=== PATIENT | female | born 1975 ===

== ENCOUNTER 2018-11-24 00:50 | Emergency (ER) | payer BC, OTHER ==
[~2018-11-24 00:50] MED LIST: HYDR-385 PO; IBUP800T37 PO
--- NOTE | 2018-11-24 00:55 | ER Report ---
History and Physical Time Seen By MD: 00:54 HPI/ROS CHIEF COMPLAINT: burning in chest HISTORY OF PRESENT ILLNESS: Pt states that tonight her chest "just does not feel right. I can tell its off". Pt feels a dullache/burning in her chest. Pt unable to tell me if it is constant but it caused her not to be able to sleep. PT denies sob. No abd pain. Pt did take 4 baby aspirin. 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 Pt states that she was on cardiac medications and her heart improved to a normal EF by 2013 and was taken off all cardiac medication and was told she was cleared. Pt states that she feels tired but that is not too unusual after her menstraul period. PT denies any hx of reflux . Pt does statse she feels more "gasy". REVIEW OF SYSTEMS: Constitutional: No fever, no chills. Eyes: No discharge. ENT: No sore throat. Cardiovascular: + chest pain, no palpitations. Respiratory: No cough, no shortness of breath. Gastrointestinal: No abdominal pain, no vomiting. Genitourinary: No hematuria. Musculoskeletal: No back pain. Skin: No rashes. Neurological: No headache, + fatigue Allergies: Coded Allergies: No Known Drug Allergies (Unverified , 11/24/18) Home Meds Discontinued Scripts Ibuprofen (IBUPROFEN) 800 Mg Tab, 800 MG PO Q8H, #15 TAB 0 Refills Prov:JOSEPH ROBERTS MD 05/01/15 Hydrocodone Bit/Acetaminophen (HYDROCODON-ACETAMINOPHEN 5-325) 2 Each Tab, 0 EACH PO Q4H PRN for PAIN, #10 TAB 0 Refills Prov:JOSEPH ROBERTS MD 05/01/15 Past Medical/Surgical History pmhx: cardiomyopathy Pshx: tubal ligation Reviewed Nurses Notes: Yes Old Medical Records Reviewed: Yes Hx Smoking: No Hx Alcohol Use: No Constitutional Vital Sign - Last 24 Hours 11/24/18 11/24/18 00:57 01:24 Pulse 80 Resp 18 B/P (MAP) 119/82 Pulse Ox 99 O2 Delivery Room Air O2 Flow Rate 5.0 Physical Exam General Appearance: The patient is alert, has no immediate need for airway protection and no signs of toxicity. Eyes: Pupils equal and round no pallor or injection, EOMI ENT: no pharyngeal erythema or exudates, Mucous membranes are moist, TM are nl b/l Respiratory: There are no retractions, lungs are clear to auscultation. Cardiovascular: Regular rate and rhythm. pulses are equal and symmetrical Gastrointestinal: Abdomen is soft and non tender, no masses, bowel sounds normal, no guarding, no rigidity or rebound Neurological: Cranial nerves II-XII grossly intact, no sensory or motor loss Skin: Warm and dry, no rashes. Musculoskeletal: Neck is supple non tender, no vertebral tenderness Extremities are nontender, nonswollen and have full range of motion. DIFFERENTIAL DIAGNOSIS: After history and physical exam differential diagnosis was considered for acs, IN, anemia, arhythmia, gerd, pud, h pylori Medical Decision Making Data Points Result Diagram: 11/24/189 11/24/18 0119 Laboratory Hematology Test 11/24/18 01:19 Red Blood Count 4.73 M/uL (4.17-5.56) Mean Corpuscular Volume 84.7 fL (80.0-96.0) Mean Corpuscular Hemoglobin 28.5 pg (26.0-33.0) Mean Corpuscular Hemoglobin Concent 33.6 g/dL (32.0-36.0) Red Cell Distribution Width 14.1 % (11.5-14.5) Mean Platelet Volume 7.0 fL (7.2-11.1) Neutrophils (%) (Auto) 35.5 % (39.4-72.5) Lymphocytes (%) (Auto) 50.1 % (17.6-49.6) Monocytes (%) (Auto) 11.6 % (4.1-12.4) Eosinophils (%) (Auto) 1.4 % (0.4-6.7) Basophils (%) (Auto) 1.4 % (0.3-1.4) Nucleated RBC Relative Count (auto) 0.0 /100WBC Neutrophils # (Auto) 2.4 K/uL (2.0-7.4) Lymphocytes # (Auto) 3.3 K/uL (1.3-3.6) Monocytes # (Auto) 0.8 K/uL (0.3-1.0) Eosinophils # (Auto) 0.1 K/uL (0.0-0.5) Basophils # (Auto) 0.1 K/uL (0.0-0.1) Nucleated RBC Absolute Count (auto) 0.00 K/uL Sodium Level 138 mmol/L (137-145) Potassium Level 3.3 mmol/L (3.5-5.0) Chloride Level 103 mmol/L (98-107) Carbon Dioxide Level 25 mmol/L (22-31) Blood Urea Nitrogen 14 mg/dl (7-18) Creatinine 0.70 mg/dl (0.52-1.04) Glomerular Filtration Rate Calc > 60.0 Random Glucose 93 mg/dl (75-110) Calcium Level 9.9 mg/dl (8.4-10.2) Total Bilirubin 0.4 mg/dl (0.2-1.3) Aspartate Amino Transf (AST/SGOT) 25 U/L (0-35) Alanine Aminotransferase (ALT/SGPT) 24 U/L (0-56) Alkaline Phosphatase 54 U/L (0-126) Troponin I < 0.012 ng/ml Total Protein 8.0 g/dl (6.3-8.2) Albumin 4.4 g/dl (3.5-5.0) Helicobacter pylori IgG Antibody Negative (NEGATIVE) Chemistry Test 11/24/18 01:19 White Blood Count 6.6 k/uL (4.5-11.0) Red Blood Count 4.73 M/uL (4.17-5.56) Hemoglobin 13.5 g/dL (12.0-16.0) Hematocrit 40.1 % (34.0-47.0) Mean Corpuscular Volume 84.7 fL (80.0-96.0) Mean Corpuscular Hemoglobin 28.5 pg (26.0-33.0) Mean Corpuscular Hemoglobin Concent 33.6 g/dL (32.0-36.0) Red Cell Distribution Width 14.1 % (11.5-14.5) Platelet Count 328 K/uL (150-450) Mean Platelet Volume 7.0 fL (7.2-11.1) Neutrophils (%) (Auto) 35.5 % (39.4-72.5) Lymphocytes (%) (Auto) 50.1 % (17.6-49.6) Monocytes (%) (Auto) 11.6 % (4.1-12.4) Eosinophils (%) (Auto) 1.4 % (0.4-6.7) Basophils (%) (Auto) 1.4 % (0.3-1.4) Nucleated RBC Relative Count (auto) 0.0 /100WBC Neutrophils # (Auto) 2.4 K/uL (2.0-7.4) Lymphocytes # (Auto) 3.3 K/uL (1.3-3.6) Monocytes # (Auto) 0.8 K/uL (0.3-1.0) Eosinophils # (Auto) 0.1 K/uL (0.0-0.5) Basophils # (Auto) 0.1 K/uL (0.0-0.1) Nucleated RBC Absolute Count (auto) 0.00 K/uL Glomerular Filtration Rate Calc > 60.0 Calcium Level 9.9 mg/dl (8.4-10.2) Total Bilirubin 0.4 mg/dl (0.2-1.3) Aspartate Amino Transf (AST/SGOT) 25 U/L (0-35) Alanine Aminotransferase (ALT/SGPT) 24 U/L (0-56) Alkaline Phosphatase 54 U/L (0-126) Troponin I < 0.012 ng/ml Total Protein 8.0 g/dl (6.3-8.2) Albumin 4.4 g/dl (3.5-5.0) Helicobacter pylori IgG Antibody Negative (NEGATIVE) EKG/Imaging EKG Interpretation nsr @ 90 with sinus arrhythmia Imaging napd ED Course/Re-evaluation ED Course check labs/ekg Potassium replaced. Decision to Disposition Date: Nov 24, 2018 Decision to Disposition Time: 02:42 Depart Departure Latest Vital Signs Vital Signs Date Time Temp Pulse Resp B/P (MAP) Pulse Ox O2 Delivery O2 Flow Rate FiO2 11/24/18 01:24 5.0 11/24/18 00:57 80 18 119/82 99 Room Air Impression: Primary Impression: Atypical chest pain Additional Impression: Hypokalemia Condition: Improved Disposition: HOME OR SELF-CARE Ref[facility] strategic client executive [facility] No Active Prescriptions or Reported Meds Patient Instructions: GENERAL ER DISCHARGE INSTRUCTIONS, Hypokalemia (ED) Additional Instructions: Your electrocardiogram and blood work today did not show a heart attack. This does not mean you do not have heart disease. If your symptoms continue I recommend you follow up with your family doctor to schedule further testing (echo/stress test). I have also provided you with the names of strategic client executive in both [place] and [place]. Your potassium is low and has been replaced. If symptoms worsen prior to seeing a doctor in follow up then please return to the emergency department. Problem Qualifiers ROSA ALVAREZ DO Nov 24, 2018 00:54
[2018-11-24 00:57] VITALS: BP 119/82
--- NOTE | 2018-11-24 01:27 | EKG ---
FACILITY: [facility] PATIENT NAME: FRANCISCO JAVIER SKINNER : [id number] MR: [id number] V: [id number] EXAM DATE: ORDERING PHYSICIAN: ROSA ALVAREZ TECHNOLOGIST: KRISTIE Test Reason : CHEST PAIN Blood Pressure : / mmHG Vent. Rate : 089 BPM Atrial Rate : 089 BPM P-R Int : 156 ms QRS Dur : 082 ms QT Int : 380 ms P-R-T Axes : 079 087 079 degrees QTc Int : 462 ms Normal sinus rhythm with sinus arrhythmia Normal ECG When compared with ECG of 29-APR-2015 11:10, No significant change was found Confirmed by LOLA ORTA ([id number]) on 11/24/2018 3:58:53 AM Referred By: Confirmed By:LOLA ORTA
[2018-11-24 01:34] LABS: PLATELET COUNT, AUTOMATED 328 K/uL (150-450)
--- NOTE | 2018-11-24 02:01 | RADIOLOGY IMAGING REPORT ---
FACILITY: [facility] PATIENT NAME: Nicole Salvador : 1975 MR: [id number] V: [id number] EXAM DATE: ORDERING PHYSICIAN: ROSA ALVAREZ TECHNOLOGIST: Location: [facility] Patient: Nicole Salvador : 1975 Visit/Account:[id number] Date of Sevice: 11/24/2018 CHEST PA LAT INDICATION: Chest pain COMPARISON: None available FINDINGS: Frontal and lateral views obtained. The cardiac silhouette is normal in size. No pneumoth orax. The lungs are clear. No osseous abnormality. No pleural fluid. IMPRESSION: Normal chest radiographs without acute finding. Report Dictated By: Scottie Simms MD at 11/24/2018 1:55 AM Report E-Signed By: Scottie Simms MD at 11/24/2018 1:57 AM WSN:[id number]
[2018-11-24] MEDS ORDERED: POTASSIUM CHL 20 MEQ TABCR PO ONE (02:20)
== END 2018-11-24 02:49 | disposition home or self-care (01) ==
LOC: ER 01:13
DX: R07.89 Other chest pain (principal); E87.6 Hypokalemia
CPT/HCPCS: 71046; 82040; 82247; 82310; 82374; 82435; 82565; 82947; 84075; 84132; 84155; 84295; 84450; 84460; 84484; 84520; 85025; 86677; 93005; 99284